=== PATIENT | female | born 1965 | race African-American/Black ===

== ENCOUNTER 2016-08-28 12:06 | Emergency (ER) | payer BC ==
[2016-01-07 13:04] VITALS: BMI 41.7
[~2016-08-28 12:06] MED LIST: CARDIZEM60 MG PO; CATAPRES0.1 MG PO; DAPSONE25 MG PO; DESONIDE15 GM TOPICAL; FOLIC ACID1 MG PO; HYDRALAZINE HCL10 MG PO; HYDRALAZINE HCL25 MG PO; LISINOPRIL10 MG PO; LISINOPRIL2.5 MG PO; OXYCODONE HCL5 MG PO; PLAQUENIL200 MG PO; PRILOSEC20 MG PO; PROTOPIC 0.1% O60 GM TOPICAL; TENEX1 MG PO; TENORMIN25 MG PO; TREXALL10 MG PO; ZESTRIL40 MG PO
[2016-08-28 12:58] LABS: ALBUMIN 3.4 g/dL (3.4-5.0); ALKALINE PHOSPHATASE 88 U/L (46-116); ALT (SGPT) 17 U/L (10-68); BILIRUBIN - TOTAL 0.29 mg/dL (0.2-1.3); CALC OSMOLALITY 281 mosm/kg (275-300); CALCIUM 9.7 mg/dL (8.5-10.1); CARBON DIOXIDE 32.6 mmol/L (21.0-32.0); CHLORIDE - SERUM 100 mmol/L (98-107); CREATININE - SERUM 1.3 mg/dL (0.6-1.3); GLUCOSE 133 mg/dL (74-106); POTASSIUM - SERUM 3.4 mmol/L (3.5-5.1); PROTEIN - SERUM 7.4 g/dL (6.4-8.2); SODIUM 140 mmol/L (136-145); UREA NITROGEN 15 mg/dL (7-18); eGFR NON AFRICAN AMERICAN 46 mL/min (90-120)
[2016-08-28 13:00] LABS: TROPONIN-I < 0.017 ng/mL (0.000-0.060)
[2016-08-28 13:12] LABS: BASOPHILS 0.2 % (0.0-2.0); EOSINOPHILS 1.4 % (0-7); HEMATOCRIT 41.4 % (36.0-48.0); HEMOGLOBIN 13.4 g/dL (12-16); IMMATURE GRANULOCYTES 0.2 % (0-5); LYMPHOCYTES 15.6 % (15-50); MCH 31.7 pg (26.0-34.0); MCHC 32.4 g/dL (31.0-37.0); MCV 97.9 fL (80.0-100.0); MEAN PLATELET VOLUME 9.3 fL (7.4-10.4); MONOCYTES 8.7 % (2-11); NEUTROPHILS 73.9 % (40-80); PLATELET COUNT 367 10x3/uL (130-400); RBC 4.23 10x6/uL (4.00-5.40); RDW 16.9 % (11.5-14.5); WBC 9.2 10x3/uL (4.8-10.8)
[2016-08-28 13:23] LABS: APPEARANCE CLEAR (CLEAR); BILIRUBIN NEGATIVE (NEGATIVE); COLOR STRAW (YELLOW); GLUCOSE NEGATIVE (NEGATIVE); KETONE SMALL mg/dL (NEGATIVE); LEUKOCYTE ESTERASE NEGATIVE (NEGATIVE); NITRITE NEGATIVE (NEGATIVE); PROTEIN NEGATIVE (NEGATIVE); UROBILINOGEN NORMAL (NORMAL)
== END 2016-08-28 14:59 | disposition home or self-care (01) ==
LOC: D.ER 12:06
PROVIDERS: Emergency Medicine; Physician Assistant
DX: R06.02 Shortness of breath (principal); R07.9 Chest pain, unspecified; I12.9 Hypertensive chronic kidney disease with stage 1 through stage 4 chronic kidney disease, or unspecified chronic kidney disease; N18.9 Chronic kidney disease, unspecified; M33.90 Dermatopolymyositis, unspecified, organ involvement unspecified; M32.9 Systemic lupus erythematosus, unspecified

== ENCOUNTER 2016-12-27 08:55 | Emergency (ER) | payer BC ==
[2016-01-07 13:04] VITALS: BMI 41.7
[2016-12-27 10:31] LABS: BASOPHILS 0.1 % (0-2); EOSINOPHILS 0.8 % (0-7); HEMATOCRIT 38.2 % (36.0-48.0); HEMOGLOBIN 12.6 g/dL (12-16); IMMATURE GRANULOCYTES 0.3 % (0-5); LYMPHOCYTES 14.4 % (15-50); MCH 32.5 pg (26.0-34.0); MCV 98.5 fL (80.0-100.0); MEAN PLATELET VOLUME 8.6 fL (7.4-10.4); MONOCYTES 5.5 % (2-11); NEUTROPHILS 78.9 % (40-80); RBC 3.88 10x6/uL (4.00-5.40); RDW 16.5 % (11.5-14.5); WBC 7.1 10x3/uL (4.8-10.8)
[2016-12-27 10:32] LABS: PLATELET COUNT 441 10x3/uL (130-400)
[2016-12-27 10:43] LABS: ALBUMIN 3.7 g/dL (3.4-5.0); ANION GAP 10.1 mmol/L (8-16); BILIRUBIN - TOTAL 0.93 mg/dL (0.2-1.3); CALCIUM 9.7 mg/dL (8.5-10.1); CARBON DIOXIDE 31.2 mmol/L (21.0-32.0); CREATININE - SERUM 1.4 mg/dL (0.6-1.3); POTASSIUM - SERUM 3.3 mmol/L (3.5-5.1); PROTEIN - SERUM 8.8 g/dL (6.4-8.2)
== END 2016-12-27 13:45 | disposition home or self-care (01) ==
LOC: D.ER 08:55
PROVIDERS: Nurse Practitioner Family
DX: S50.11XA Contusion of right forearm, initial encounter (principal); X58.XXXA Exposure to other specified factors, initial encounter; Y93.89 Activity, other specified; Y92.239 Unspecified place in hospital as the place of occurrence of the external cause; K21.9 Gastro-esophageal reflux disease without esophagitis

== ENCOUNTER 2017-03-31 08:56 | Day surgery (SDC) | payer BC ==
[~2017-03-31] VITALS: Ht 170.2 cm; Wt 123.2 kg
--- NOTE | ~2017-03-31 | OP ---
PATIENT NAME: MARCO MCKEON MEDICAL RECORD: [id number] :61 LOCATION:[facility] ADMISSION DATE: SURGEON: LARON MONTERO DO DATE OF OPERATION: 03/31/2017 INDICATIONS FOR PROCEDURE: Dysphagia, heartburn, epigastric pain, nausea. SCOPE: Olympus video gastroscope. MEDICATIONS: Propofol IV per anesthesia (TIVA). ESTIMATED BLOOD LOSS: Minimal. COMPLICATIONS: None. FINDINGS: Informed consent was given. The patient was made comfortable with the above medication. After reaching an adequate level of sedation by slow IV push, the patient was placed on her left side. The endoscope was then advanced under direct visualization through the mouth to the second portion of the duodenum. In the esophagus, there was evidence of Candidiasis of mild severity. At the GE junction, there was mild evidence of LA class A reflux-induced esophagitis. The endoscope was advanced beyond the GE junction into the stomach and retroflexed to view the cardia which revealed a small sliding hiatal hernia. In the fundus and body of the stomach, there were a few small benign appearing fundic gland type polyps. A single polyp was removed to confirm this. In the antrum and prepyloric region of the stomach, there were some very mild erythema and granularity consistent with possible gastritis. Random biopsies were taken to submit for histology and to rule out H. pylori. The endoscope was advanced beyond the pylorus into the duodenum where the bulb and second portion of the duodenum appeared normal. The scope was then withdrawn back into the mid esophagus where random biopsies were taken to rule out eosinophilic esophagitis. The endoscope was then withdrawn from the patient. The patient tolerated the procedure well and there were no complications. IMPRESSION: 1. Esophageal Candidiasis. 2. Mild LA class A reflux-induced esophagitis. 3. Small sliding hiatal hernia. 4. Benign appearing fundic gland type gastric polyps, biopsies taken. 5. Erythema and granularity of the stomach consistent with possible gastritis, biopsies taken. PLAN AND RECOMMENDATIONS: 1. Discharge home when recovery parameters are met. 2. Follow up biopsy specimen results. 3. Continue current diet. 4. Continue current medications, including omeprazole 20 mg daily and ranitidine 150-300 mg as needed. 5. Script for fluconazole 100 mg daily times 21 days will be given regarding the esophageal Candidiasis. 6. Consider referral for manometry/motility study. 7. Proceed with colonoscopy as scheduled. TRANSINT:[id number] Voice Confirmation ID: [id number] DOCUMENT ID: [id number] OPERATIVE REPORT [id number] MARCO MCKEON NATHAN A DO CC: [id number] DICTATION DATE: 03/31/17 1223 CARROTING MACHINE OPERATOR: 03/31/172020 [facility] 03/31/17 [place] [id number]
[2017-03-31] MEDS ORDERED: CHLOROQUINE PH250 MG PO (09:24)
[2017-03-31] MEDS ORDERED: CELLCEPT500 MG PO (09:26)
[2017-03-31 09:27] VITALS: BP 181/80; Ht 170.2 cm; Wt 123.2 kg
[2017-03-31 10:27] LABS: APTT 23.8 SECONDS (22.8-39.4); INR 0.94 (0.85-1.17); PROTIME 12.4 SECONDS (11.6-15.0)
[2017-03-31 10:28] LABS: BASOPHILS 0.1 % (0-2); CALC OSMOLALITY 283 mosm/kg (275-300); CALCIUM 8.9 mg/dL (8.5-10.1); CARBON DIOXIDE 31.7 mmol/L (21.0-32.0); CHLORIDE - SERUM 105 mmol/L (98-107); CREATININE - SERUM 0.8 mg/dL (0.6-1.3); EOSINOPHILS 0.1 % (0-7); GLUCOSE 92 mg/dL (74-106); HEMATOCRIT 41.4 % (36.0-48.0); HEMOGLOBIN 14.1 g/dL (12-16); IMMATURE GRANULOCYTES 0.3 % (0-5); LYMPHOCYTES 12.8 % (15-50); MCH 31.1 pg (26.0-34.0); MCHC 34.1 g/dL (31.0-37.0); MCV 91.4 fL (80.0-100.0); MEAN PLATELET VOLUME 9.9 fL (7.4-10.4); MONOCYTES 10.5 % (2-11); NEUTROPHILS 76.2 % (40-80); RBC 4.53 10x6/uL (4.00-5.40); SODIUM 142 mmol/L (136-145); UREA NITROGEN 16 mg/dL (7-18); WBC 8.6 10x3/uL (4.8-10.8); eGFR NON AFRICAN AMERICAN 79 mL/min (90-120)
[2017-03-31 10:29] LABS: PLATELET COUNT 307 10x3/uL (130-400)
== END 2017-03-31 13:10 | disposition home or self-care (01) ==
LOC: D.OPS 08:56
PROVIDERS: Internal Medicine Gastroenterology
DX: B37.81 Candidal esophagitis (principal); K21.0 Gastro-esophageal reflux disease with esophagitis; K44.9 Diaphragmatic hernia without obstruction or gangrene; K31.7 Polyp of stomach and duodenum; K29.50 Unspecified chronic gastritis without bleeding; R12 Heartburn; Z01.812 Encounter for preprocedural laboratory examination

== ENCOUNTER 2017-04-06 11:12 | Emergency (ER) | payer BC ==
[2017-03-31 09:27] VITALS: BMI 42.5
[~2017-04-06 11:12] MED LIST changes: +CELLCEPT500 MG PO; +CHLOROQUINE PH250 MG PO
[2017-04-06 12:04] LABS: BASOPHILS 0.1 % (0-2); EOSINOPHILS 0.1 % (0-7); HEMOGLOBIN 15.3 g/dL (12-16); IMMATURE GRANULOCYTES 0.3 % (0-5); LYMPHOCYTES 6.2 % (15-50); MCH 31.6 pg (26.0-34.0); MCHC 34.8 g/dL (31.0-37.0); MCV 90.9 fL (80.0-100.0); MEAN PLATELET VOLUME 9.1 fL (7.4-10.4); MONOCYTES 5.1 % (2-11); NEUTROPHILS 88.2 % (40-80); PLATELET COUNT 243 10x3/uL (130-400); RBC 4.84 10x6/uL (4.00-5.40); RDW 14.9 % (11.5-14.5); WBC 14.4 10x3/uL (4.8-10.8)
[2017-04-06 12:20] LABS: APPEARANCE CLEAR (CLEAR); BACTERIA MODERATE /hpf (NONE SEEN); BILIRUBIN NEGATIVE (NEGATIVE); COLOR YELLOW (YELLOW); EPITHELIAL CELLS 0-5 /hpf (0-5); GLUCOSE NEGATIVE (NEGATIVE); KETONE NEGATIVE (NEGATIVE); LEUKOCYTE ESTERASE TRACE (NEGATIVE); MUCUS <1+ /lpf (NONE SEEN); NITRITE NEGATIVE (NEGATIVE); PROTEIN NEGATIVE (NEGATIVE); RED CELLS - URINE OCC /hpf (0-5); SPECIFIC GRAVITY 1.015 (1.005-1.020); UROBILINOGEN NORMAL (NORMAL); WHITE CELLS - URINE 0-5 /hpf (0-5)
[2017-04-06 12:25] LABS: TROPONIN-I 0.026 ng/mL (0.000-0.060)
== END 2017-04-06 15:19 | disposition home or self-care (01) ==
LOC: D.ER 11:12
PROVIDERS: Physician Assistant
DX: R10.13 Epigastric pain (principal); R10.32 Left lower quadrant pain; I12.9 Hypertensive chronic kidney disease with stage 1 through stage 4 chronic kidney disease, or unspecified chronic kidney disease; N18.9 Chronic kidney disease, unspecified; B36.9 Superficial mycosis, unspecified

== ENCOUNTER → 2017-04-28 07:39 | Outpatient (CLI) | payer BC ==
[2017-03-31 09:27] VITALS: BMI 42.5
== END | disposition home or self-care (01) ==
LOC: D.RAD 07:39
DX: R11.0 Nausea (principal); R10.13 Epigastric pain; R19.7 Diarrhea, unspecified; R13.10 Dysphagia, unspecified

== ENCOUNTER → 2017-04-30 10:54 | Outpatient (CLI) | payer BC ==
[2017-03-31 09:27] VITALS: BMI 42.5
== END | disposition home or self-care (01) ==
LOC: D.NM 10:54
DX: R10.13 Epigastric pain (principal); R19.7 Diarrhea, unspecified; R13.10 Dysphagia, unspecified; R11.0 Nausea

== ENCOUNTER 2017-05-10 06:59 | Day surgery (SDC) | payer BC ==
[2017-03-31 09:27] VITALS: BMI 42.5
[2017-05-10] MEDS ORDERED: ZANTAC300 MG PO (08:03)
[2017-05-10] MEDS ORDERED: K-TAB10 MEQ PO (08:03)
[2017-05-10] MEDS ORDERED: PREDNISONE10 MG PO (08:04)
[2017-05-10] MEDS ORDERED: OMEPRAZOLE40 MG PO (08:05)
[2017-05-10] MEDS ORDERED: PHENERGAN25 M1 PO (08:05)
[2017-05-10] MEDS ORDERED: [UNRECOGNIZED DRUG - SUPPLY] TP (08:07)
[2017-05-10] MEDS ORDERED: METHOTREXA25 MG/1 M5 IM (08:07)
[2017-05-10] MEDS ORDERED: TOPAMAX50 MG PO (08:08)
[2017-05-10 09:29] LABS: HEMATOCRIT 40.2 % (36.0-48.0); HEMOGLOBIN 13.6 g/dL (12-16); MCH 31.3 pg (26.0-34.0); MCHC 33.8 g/dL (31.0-37.0); MCV 92.6 fL (80.0-100.0); MEAN PLATELET VOLUME 8.8 fL (7.4-10.4); RBC 4.34 10x6/uL (4.00-5.40); RDW 14.1 % (11.5-14.5); WBC 7.5 10x3/uL (4.8-10.8)
--- NOTE | 2017-05-10 12:01 | NUR ---
1130- IV D/C'D, PT TOLERATED. CAHTETER INTACT. 1140- DISCHARGE INSTRUCTIONS GIVEN, PT VERBALIZED UNDERSTANDING. PAPERWORK COMPLETED. 1145- PT DISCHARGED VIA WHEELCHAIR WITH MOTHER.
--- NOTE | 2017-05-10 12:43 | OP ---
PATIENT NAME: MARCO MCKEON MEDICAL RECORD: [id number] :61 LOCATION:[facility] ADMISSION DATE: SURGEON: LARON MONTERO DO DATE OF OPERATION: 05/10/2017 PROCEDURE: Colonoscopy with polypectomy and biopsy. INDICATIONS FOR PROCEDURE: Lower abdominal pain, altered bowel function, hematochezia. SCOPE: CertiRx video pediatric colonoscope. MEDICATIONS: Propofol 350 mg IV and Zofran 4 mg IV per anesthesia. WITHDRAWAL TIME: 11 minutes. ESTIMATED BLOOD LOSS: Minimal. COMPLICATIONS: None. FINDINGS: Informed consent was given. The patient was made comfortable with the above medication. After reaching an adequate level of sedation by slow IV push, the patient was placed on her left side. A digital rectal examination was performed and was normal. The endoscope was then advanced under direct visualization through the rectum to the cecum with visualization of the appendiceal orifice and ileocecal valve. The scope was slowly withdrawn and mucosa was carefully examined. The prep quality was good. There was evidence of mild pandiverticulosis on this examination. There was no evidence of bleeding or diverticulitis. There was a single polyp visualized in the transverse colon, which was benign appearing and sessile. It measured approximately 5 mm in diameter and was removed in 1 piece using hot forceps. Random biopsies were taken throughout the colon to submit for histopathology and to rule out microscopic colitis. In the sigmoid colon, there were some peridiverticular changes consistent with erythema and granularity. A few biopsies were taken to submit for histology and to rule out colitis. Retroflexion was performed in the rectum with visualization of nonbleeding small hemorrhoids. Scope was then withdrawn from the patient. The patient tolerated the procedure well and there were no complications. IMPRESSION: 1. Single polyp removed from the transverse colon as described above. 2. Mild pandiverticulosis. 3. Peridiverticular changes in the sigmoid colon, possible colitis. Biopsies are pending. PLAN AND RECOMMENDATIONS: 1. Discharge home when recovery parameters are met. 2. Follow up biopsy specimen results. 3. High fiber diet. 4. Continue current medications. 5. Schedule a modified barium swallow for continued dysphagia as discussed prior to procedure. 6. Could consider a trial of dicyclomine 10-20 mg b.i.d. to t.i.d. for lower abdominal pain and changes in bowels, but this would likely make nausea and upper digestive symptoms worse and could have possible side effects with her OPERATIVE REPORT [id number] MARCO MCKEON other comorbidities. 7. Recall colonoscopy in 5 years. TRANSINT:[id number] Voice Confirmation ID: [id number] DOCUMENT ID: [id number] LARON MONTERO DO at 1243 CC: [id number] DICTATION DATE: 05/10/17 1052 MANAGER TECHNICAL SALES: 05/10/17 1224 [facility] 05/10/[address] [address]
== END 2017-05-10 11:45 | disposition home or self-care (01) ==
LOC: D.OPS 06:59
PROVIDERS: Anesthesiology
DX: R10.30 Lower abdominal pain, unspecified (principal); R19.4 Change in bowel habit; K92.1 Melena; K21.9 Gastro-esophageal reflux disease without esophagitis; G47.30 Sleep apnea, unspecified; I12.9 Hypertensive chronic kidney disease with stage 1 through stage 4 chronic kidney disease, or unspecified chronic kidney disease; N18.9 Chronic kidney disease, unspecified; Z01.812 Encounter for preprocedural laboratory examination; D12.3 Benign neoplasm of transverse colon

== ENCOUNTER → 2017-05-17 12:28 | Outpatient (CLI) | payer BC ==
[2017-03-31 09:27] VITALS: BMI 42.5
[~2017-05-17 12:28] MED LIST changes: +K-TAB10 MEQ PO; +METHOTREXA25 MG/1 M5 IM; +OMEPRAZOLE40 MG PO; +PHENERGAN25 M1 PO; +PREDNISONE10 MG PO; +TOPAMAX50 MG PO; +ZANTAC300 MG PO; +[UNRECOGNIZED DRUG - SUPPLY] TP
== END | disposition home or self-care (01) ==
LOC: D.RAD 12:28
DX: R13.12 Dysphagia, oropharyngeal phase (principal)

== ENCOUNTER 2017-06-15 09:30 | Emergency (ER) | payer BC ==
[2017-03-31 09:27] VITALS: BMI 42.5
[2017-06-15 11:16] LABS: BASOPHILS 0.1 % (0-2); HEMATOCRIT 42.7 % (36.0-48.0); HEMOGLOBIN 14.5 g/dL (12-16); IMMATURE GRANULOCYTES 0.5 % (0-5); LYMPHOCYTES 12.2 % (15-50); MCH 31.8 pg (26.0-34.0); MCV 93.6 fL (80.0-100.0); MEAN PLATELET VOLUME 9.1 fL (7.4-10.4); MONOCYTES 10.4 % (2-11); NEUTROPHILS 75.8 % (40-80); PLATELET COUNT 300 10x3/uL (130-400); RBC 4.56 10x6/uL (4.00-5.40); RDW 13.7 % (11.5-14.5)
[2017-06-15 11:30] LABS: ALBUMIN 3.5 g/dL (3.4-5.0); ANION GAP 13.1 mmol/L (8-16); BILIRUBIN - TOTAL 0.49 mg/dL (0.2-1.3); CALCIUM 9.5 mg/dL (8.5-10.1); CREATININE - SERUM 1.1 mg/dL (0.6-1.3); POTASSIUM - SERUM 4.1 mmol/L (3.5-5.1); PROTEIN - SERUM 7.7 g/dL (6.4-8.2)
== END 2017-06-15 13:00 | disposition home or self-care (01) ==
LOC: D.ER 09:30
PROVIDERS: Nurse Practitioner Family
DX: J02.0 Streptococcal pharyngitis (principal); I12.9 Hypertensive chronic kidney disease with stage 1 through stage 4 chronic kidney disease, or unspecified chronic kidney disease; N18.9 Chronic kidney disease, unspecified

== ENCOUNTER 2018-01-29 07:21 | Inpatient (IN) | payer MEDICARE, BC ==
[~2018-01-29] VITALS: Ht 170.2 cm; Wt 116.8 kg
[2018-01-29] VITALS (34 sets, daily range): BP systolic 109–206; BP diastolic 56–125; BMI 40.2
[2018-01-29] MEDS ORDERED: COREG 3.1253.125 MG PO (07:42)
[2018-01-29] MEDS ORDERED: CATAPRES0.1 MG PO (07:42)
[2018-01-29 08:13] LABS: BASOPHILS 0.3 % (0-2); EOSINOPHILS 1.4 % (0-7); HEMATOCRIT 38.3 % (36.0-48.0); HEMOGLOBIN 13.2 g/dL (12-16); IMMATURE GRANULOCYTES 0.1 % (0-5); LYMPHOCYTES 19.5 % (15-50); MCH 31.4 pg (26.0-34.0); MCHC 34.5 g/dL (31.0-37.0); MEAN PLATELET VOLUME 9.2 fL (7.4-10.4); MONOCYTES 8.3 % (2-11); NEUTROPHILS 70.4 % (40-80); PLATELET COUNT 346 10x3/uL (130-400); RBC 4.21 10x6/uL (4.00-5.40); RDW 13.9 % (11.5-14.5)
[2018-01-29 08:23] LABS: APTT 24.6 SECONDS (22.8-39.4); INR 0.94 (0.85-1.17); PROTIME 12.2 SECONDS (11.6-15.0)
[2018-01-29 08:24] LABS: D-DIMER-QUANTITATIVE 3.91 ug/mLFEU (0.20-0.54)
[2018-01-29 09:25] LABS: ALBUMIN 3.1 g/dL (3.4-5.0); ALKALINE PHOSPHATASE 54 U/L (46-116); ALT (SGPT) 19 U/L (10-68); BILIRUBIN - TOTAL 0.56 mg/dL (0.2-1.3); CALC OSMOLALITY 279 mosm/kg (275-300); CALCIUM 8.8 mg/dL (8.5-10.1); CARBON DIOXIDE 27.4 mmol/L (21.0-32.0); CHLORIDE - SERUM 103 mmol/L (98-107); CREATININE - SERUM 1.1 mg/dL (0.6-1.3); GLUCOSE 96 mg/dL (74-106); POTASSIUM - SERUM 3.6 mmol/L (3.5-5.1); PROTEIN - SERUM 6.9 g/dL (6.4-8.2); SODIUM 141 mmol/L (136-145); UREA NITROGEN 9 mg/dL (7-18); eGFR NON AFRICAN AMERICAN 55 mL/min (90-120)
[2018-01-29 09:36] LABS: CKMB 0.6 U/L (0.0-3.6); CREATINE KINASE 70 UL (21-215); MAGNESIUM - SERUM 1.9 mg/dL (1.8-2.4); PRO BNP 217 pg/mL (0-125)
[2018-01-29 09:38] LABS: TROPONIN-I < 0.017 ng/mL (0.000-0.060)
[2018-01-29 12:06] LABS: UDS - AMPHET NEGATIVE QUAL (NEGATIVE); UDS - BARB NEGATIVE QUAL (NEGATIVE); UDS - BENZO NEGATIVE QUAL (NEGATIVE); UDS - COCAINE NEGATIVE QUAL (NEGATIVE); UDS - OPIATE NEGATIVE QUAL (NEGATIVE); UDS - PCP NEGATIVE QUAL (NEGATIVE); UDS - THC NEGATIVE QUAL (NEGATIVE)
[2018-01-29 13:01] LABS: CKMB 0.5 U/L (0.0-3.6); CREATINE KINASE 69 UL (21-215); TROPONIN-I < 0.017 ng/mL (0.000-0.060)
[2018-01-29 19:02] LABS: CKMB 0.7 U/L (0.0-3.6); CREATINE KINASE 66 UL (21-215)
[2018-01-29 19:04] LABS: TROPONIN-I 0.061 ng/mL (0.000-0.060)
[2018-01-30] VITALS (10 sets, daily range): BP systolic 152–191; BP diastolic 71–93; Ht 170.2 cm; Wt 116.8 kg
[2018-01-30 00:58] LABS: CKMB 0.5 U/L (0.0-3.6); CREATINE KINASE 67 UL (21-215); TROPONIN-I 0.046 ng/mL (0.000-0.060)
[2018-01-30 04:06] LABS: BASOPHILS 0.3 % (0-2); EOSINOPHILS 1.8 % (0-7); HEMOGLOBIN 13.3 g/dL (12-16); IMMATURE GRANULOCYTES 0.3 % (0-5); LYMPHOCYTES 16.9 % (15-50); MCH 31.2 pg (26.0-34.0); MCHC 34.1 g/dL (31.0-37.0); MCV 91.5 fL (80.0-100.0); MONOCYTES 7.9 % (2-11); NEUTROPHILS 72.8 % (40-80); PLATELET COUNT 333 10x3/uL (130-400); RBC 4.26 10x6/uL (4.00-5.40); RDW 13.9 % (11.5-14.5); WBC 7.9 10x3/uL (4.8-10.8)
[2018-01-30 04:24] LABS: ALBUMIN 3.4 g/dL (3.4-5.0); ANION GAP 8.1 mmol/L (8-16); BILIRUBIN - TOTAL 0.6 mg/dL (0.2-1.3); CALCIUM 9.2 mg/dL (8.5-10.1); CARBON DIOXIDE 28.4 mmol/L (21.0-32.0); CREATININE - SERUM 1.1 mg/dL (0.6-1.3); POTASSIUM - SERUM 3.5 mmol/L (3.5-5.1); PROTEIN - SERUM 7.7 g/dL (6.4-8.2)
[2018-01-30] MEDS ORDERED: NORVASC10 MG PO (11:40)
[2018-01-30] MEDS ORDERED: ZESTRIL40 MG PO (11:41)
[2018-01-30] MEDS ORDERED: CHLORTHALIDONE25 MG PO (11:42)
== END 2018-01-30 15:11 | disposition home or self-care (01) | DRG 305 ==
LOC: D.ER 07:21 → D.EDHOLD 11:37 → D.ICU 15:01 → D.M2 01-30 09:32
PROVIDERS: Family Medicine
DX: I16.0 Hypertensive urgency (principal); Z68.41 Body mass index [BMI] 40.0-44.9, adult; B36.9 Superficial mycosis, unspecified; E66.01 Morbid (severe) obesity due to excess calories; K21.9 Gastro-esophageal reflux disease without esophagitis; I11.0 Hypertensive heart disease with heart failure; I50.9 Heart failure, unspecified; Z86.73 Personal history of transient ischemic attack (TIA), and cerebral infarction without residual deficits

== ENCOUNTER 2018-02-05 08:46 | Outpatient (CLI) | payer MEDICARE, BC ==
[~2018-02-05] VITALS: Ht 170.2 cm; Wt 113.6 kg
--- NOTE | ~2018-02-05 | HEMODYNAMI ---
PATIENT:MARCO MCKEON MEDICAL RECORD: [id number] : 61 LOCATION:[facility] ADMISSION DATE: 02/05/18 Generatedon:02/05/201813:55 Patient name: MARCO MCKEON Patient #: [id number] SSN: : 1965 Date of study: 02/05/2018 Page: Of Hemodynamic Procedure Report Patient Data Patient Demographics Procedure consent was obtained First Name: MARCO Gender: Female Last Name: MIKE : 1965 Middle Initial: M Age: 52 year(s) Patient #: [id number] Race: Black Additional ID: [id number] Contact details [address]: [address] [place] [address] State: [place] City: [place] Zip code: [address] Past Medical History Allergies Allergen Reaction Date Comments Reported Other allergy 02/05/2018 iodine Admission Admission Data Admission Date: 02/05/2018 Admission Time: 8:46 Height (in.): 66.93 BSA: 2.23 (m2) Height (cm.): 170 BMI: 39.79 (kg/m2) Weight (lbs.): 253.53 Weight (kg.): 115 Lab Results Lab Result Date: 02/05/2018 Lab Result Time: 0:00 Biochemistry Name Units Result Min Max BUN mg/dl 15 --(--*-)-- 7 18 Creatinine mg/dl 1.2 --(---*)-- 0.6 1.3 CBC Name Units Result Min Max Hemoglobin g/dl 13.6 --(*---)-- 13.5 17.5 Procedure Procedure Types Cath Procedure Diagnostic Procedure LHC LHC w/Coronaries Procedure Description Procedure Date Procedure Date: 02/05/2018 Procedure Start Time: 13:39 Procedure End Time: 13:51 Procedure Staff Name Function Vinny Bolanos MD Performing Physician Carisa Shane RT Monitor Curtis Robles RN Nurse Thai García RT Scrub Procedure Data Cath Procedure Fluoroscopy Diagnostic fluoroscopy Total fluoroscopy Time: 1.1 time: 1.1 min min Diagnostic fluoroscopy Total fluoroscopy dose: 388 dose: 388 mGy mGy Contrast Material Contrast Material Type Amount (ml) Isovue 300 44 Entry Location Entry Primary Successful Side Size Upsize Upsize Entry Closure Succes sful Closure Location (Fr) 1 (Fr) 2 (Fr) Remarks Device Remarks Femoral Right 5 Fr Exoseal artery Estimated blood loss: 10 ml Diagnostic catheters Device Type Used For End Catheter Placement MULTIPACK JL 4.0 5Fr Procedure catheter MULTIPACK 3DRC 5Fr Procedure catheter MULTIPACK Pigtail 5 Fr Procedure catheter Procedure Complications No complications Procedure Medications Medication Administration Route Dosage Oxygen NC 2 l/min Lidocaine 1% added to field 20 Heparin Flush Bag added to field 2 bags (1000units/500ml NS) 0.9% NaCl I.V. 100 ml/hr Versed I.V. 1 mg Fentanyl I.V. 50 mcg Versed I.V. 1 mg Fentanyl I.V. 50 mcg Hemodynamics Rest BSA: 2.23 (m2) O2 Consumption: Estimated: 223.98 (ml/min) O2 Consumption indexed : Estimated:100.44 (ml/min/m) Heart Rate: 80 (bpm) Pressure Samples Time Site Value (mmHg) Purpose Heart Use Rate(bpm) 13:48 AO 147/5(48) EDP 80 13:48 AO 148/7(48) Snapshot 82 Snapshots Pre Cath Intra NCS Post Cath Vital Signs Time Heart Resp SPO2 etCO2 NIBP (mmHg) Rhythm Pain Sedation Rate (ipm) (%) (mmHg) Status Level (bpm) 13:29:41 67 29 100 24.7 139/79(106) NSR 0 (11) 10(A) , No pain 13:34:17 68 14 100 23.9 134/74(102) NSR 0 (11) 10(A) , No pain 13:38:52 68 16 100 25.4 125/72(92) NSR 0 (11) 10(A) , No pain 13:43:26 71 19 100 23.2 125/63(92) NSR 0 (11) 10(A) , No pain 13:48:09 76 18 100 24.7 132/73(89) NSR 0 (11) 10(A) , No pain Medications Time Medication Route Dose Verified Delivered Reason Notes Effe ctiveness by by 13:28:49 Oxygen NC 2 Vinny Buffie used for l/min Norred Robles flying squad salesperson 13:30:04 Lidocaine 1% added 20ml Vinny Buffie for local to vial Luis Miguel Robles RN anesthetic field 13:30:10 Heparin Flush added 2 Vinny Buffie used for Bag to bags Luis Miguel Robles RN procedure (1000units/500ml field NS) 13:30:20 0.9% NaCl I.V. 100 Vinny Buffie Per ml/hr Luis Miguel Robles RN physician 13:33:23 Versed I.V. 1 mg Vinny Buffie for Luis Miguel Robles RN sedation 13:33:28 Fentanyl I.V. 50 Vinny Buffie for mcg Luis Miguel Robles RN sedation 13:40:37 Versed I.V. 1 mg Vinny Buffie for Luis Migeul Robles RN sedation 13:40:41 Fentanyl I.V. 50 Vinny Buffie for mcg Luis Miguel Robles RN sedation MD Procedure Log Time Note 12:58:50 Patient Height : 66.93 inches 12:58:57 Patient Weight : 253.53 lbs 12:59:37 Lab Result : Hemoglobin 13.6 g/dl 12:59:37 Lab Result : Creatinine 1.2 mg/dl 12:59:37 Lab Result : BUN 15 mg/dl 13:00:02 Diagnostic Cath status Elective 13:00:04 Thai JIMENEZ(R) sent for patient. Start room use. 13:00:07 Time tracking: Call back (After hours or weekends) 13:00:12 Plan of Care:Hemodynamics will remain stable., Cardiac rhythm will remain stable., Comfort level will be maintained., Respiratory function will remain adequate., Patient/ family verbilizes understanding of procedure., Procedure tolerated without complication., Recovers from procedure without complications.. 13:00:53 Patient received from ED to CCL 1 Alert and oriented. Tansferred to table in Supine position. 13:00:55 Warm blankets applied, and shama hugger turned on for patient comfort. 13:00:55 Warm blankets applied, and shama hugger turned on for patient comfort. 13:00:56 Correct patient and procedure confirmed by team. 13:00:59 Signed procedure consent form obtained from patient. 13:01:09 H&P Date Dictated: 02/05/2018 Emergent; H&P N/A. 13:01:13 Family in waiting room. 13:01:15 Patient NPO since Midnight. 13:01:35 Patient allergic to Other allergyiodine 13:01:39 Is the patient allergic to Iodine/contrast media? Yes. 13:01:41 Was the patient premedicated? Yes 13:28:49 Oxygen 2 l/min NC was administered by Curtis Robles RN; used for procedure; 13:28:50 Vital chart was started 13:30:04 Lidocaine 1% 20ml vial added to field was administered by Curtis Robles RN; for local anesthetic; 13:30:10 Heparin Flush Bag (1000units/500ml NS) 2 bags added to field was administered by Curtis Robles RN; used for procedure; 13:30:20 0.9% NaCl 100 ml/hr I.V. was administered by Curtis Robles RN; Per physician; 13:30:22 Is patient on blood thinner?Yes 13:30:25 ACC The patient was administered the following blood thiners within the last 24 hours: ACCPlavix 13:30:28 Patient diabetic? No. 13:30:31 Snore? Yes 13:30:33 Sleep apnea? Yes 13:30:38 Airway obstruction? Yes COPD 13:30:50 IV patent on arrival in right forearm with 0.9% NaCl at KVO. 13:31:01 IV left hand D/C'd due to infiltration. 13:31:17 IV started by Curtis Robles RN inright forearm with a 22 gauge IV catheter with 0.9% NaCl at KVO. 13:31:20 Lab results completed and on chart. 13:31:29 Right groin area was prepped with chlora-prep and draped in sterile fashion 13:31:30 Alarms reviewed by R. N. 13:31:31 Sharps counted by scrub and verified by R.N. 13:31:32 Physician paged 13:31:33 Physician arrived 13:31:34 --------ALL STOP TIME OUT------ 13:31:34 Final Timeout: patient, procedure, and site verified with staff and physician. All members of the team are in agreement. 13:31:38 Right groin site verified by team. 13:31:46 Physical assessment completed. ASA score P 3 - A patient with severe systemic disease as per Vinny Norred MD. 13:31:53 Sedation plan: IV Moderate Sedation Medication:Versed, Fentanyl 13:32:17 Use device set Femoral Dx 13:32:19 ACIST Syringe (85235) opened to sterile field. 13:32:20 Bag Decanter (2002S) opened to sterile field. 13:32:20 Medline Cath Pack ([id number]) opened to sterile field. 13:32:21 DIAGNOSTIC WIRE .035 260cm J wire (527329) opened to sterile field. 13:32:22 ACIST Hand Control (13159) opened to sterile field. 13:32:22 ACIST Manifold (29194) opened to sterile field. 13:32:23 DIAGNOSTIC Multipack 5Fr catheter set ([id number]) opened to sterile field. 13:32:23 Tegaderm 4 x 4 (1626W) opened to sterile field. 13:32:24 PERCUTANEOUS ENTRY 19GA needle opened to sterile field. 13:32:25 MICROPUNCTURE 4FR Cook ([id number]) opened to sterile field. 13:32:27 SHEATH Prelude 5Fr 0.035 ([id number]-3N-76-035) opened to sterile field. 13:33:23 Versed 1 mg I.V. was administered by Curtis Robles RN; for sedation; 13:33:28 Fentanyl 50 mcg I.V. was administered by Curtis Robles RN; for sedation; 13:38:43 Procedure started. 13:38:43 Full Disclosure recording started 13:39:08 Local anesthetic to right femoral artery with Lidocaine 2% by Vinny Bolanos MD.INITIAL ACCESS ONLY 13:39:42 A 5 Fr sheath was inserted into the Right Femoral artery 13:39:46 Zero performed for pressure channel P1 13:39:54 Zero performed for pressure channel P1 13:40:37 Versed 1 mg I.V. was administered by Curtis Robles RN; for sedation; 13:40:41 Fentanyl 50 mcg I.V. was administered by Curtis Robles RN; for sedation; 13:42:20 A MULTIPACK JL 4.0 5Fr catheter was advanced over the wire and used for Procedure. 13:42:22 LCA angiography performed. 13:43:55 Catheter removed. 13:44:07 A MULTIPACK 3DRC 5Fr catheter was advanced over the wire and used for Procedure. 13:44:47 RCA angiography performed. 13:46:30 Catheter removed. 13:46:37 A MULTIPACK Pigtail 5 Fr catheter was advanced over the wire and used for Procedure. 13:46:38 EXOSEAL 5Fr (EX500) opened to sterile field. 13:46:49 LV gram done using SMITH 13:49:08 EF : 65 % 13:49:12 LV hemodynamics recorded. 13:49:13 Catheter removed. 13:49:24 Sheath removed intact; hemostasis achieved with Exoseal to the Right Femoral artery. 13:49:48 Procedure ended.(Physican Out) 13:50:01 Fluoroscopy time 01.10 minutes. 13:50:05 Fluoroscopy dose: 388 mGy 13:50:05 Flurop Dose total: 388 13:50:09 Contrast amount:Isovue 300 44ml. 13:50:12 Sharps counted by scrub and verified by R.N. 13:50:27 Insertion/operative site no bleeding no hematoma. 13:50:32 Post right femoral artery:stable 13:50:35 Post Procedure Pulses reassessed and unchanged 13:50:39 Post procedure rhythm: unchanged. 13:50:42 Estimated blood loss: 10 ml 13:50:43 Post procedure instruction explained to patient.Patient verbalizes understanding. 13:50:44 Patient needs reinforcement of post procedure teaching. 13:50:58 Procedure and supply charges have been captured, reviewed, submitted and are correct. 13:51:18 Procedure Complication : No complications 13:51:21 Vital chart was stopped 13:51:23 See physician's report for complete and final results. 13:51:30 Report given to Pre/Post Procedure Room. 13:51:35 Patient transfered to [facility] with Bed. 13:51:38 Procedure ended. 13:51:38 Full Disclosure recording stopped 13:51:40 End room use (Document Last) Device Usage Item Name Manufacture Quantity Catalog Number Hospital Part Current M inimal Lot# / Charge Number Stock Stock Serial# Code ACIST Syringe Acist 1 06734 191976 [id number] 099864 2 0 (96487) [employer] Bag Decanter Microtek 1 000845 98529 195550 5 () Medical Inc. Medline Cath Cardinal 1 [id number] 254722 27503 402638 5 Mobile Tracing Services [facility] ([id number]) DIAGNOSTIC WIRE [place] 1 348055 914604 397788 481436 3 0 .035 260cm J wire (175762) ACIST Hand Acist 1 89852 711639 960257 097526 5 Control (19267) [employer] Inc ACIST Manifold Acist 1 16980 500433 624056 348092 5 (47817) [employer] Inc DIAGNOSTIC Cardinal 1 [id number] 656331 94402 163583 3 0 Multipack 5Fr Health catheter set ([id number]) Tegaderm 4 x 4 3M 1 1626W 572134 300968 603429 5 (1626W) PERCUTANEOUS Cook Medical 1 W52648 783532 745006 5 ENTRY 19GA needle MICROPUNCTURE Cook Medical 1 [id number] 206785 380342 857575 5 4FR Cook ([id number]) SHEATH Prelude Merit 1 [id number] 645966 576007 580571 5 5Fr 0.035 Medical ([id number]-3Q-[id number]) MULTIPACK JL Cardinal 1 [id number] 5 4.0 5Fr Health catheter MULTIPACK 3DRC Cardinal 1 580955 5 5Fr catheter Health MULTIPACK Cardinal 1 [id number] 5 Pigtail 5 Fr Health catheter EXOSEAL 5Fr Cardinal 1 EX500 283061 208446 167652 1 0 (EX500) Health Signature Audit [place] Stage Time Signature Unsigned Intra-Procedure 02/05/2018 Carisa Shane 1:55:19 PM RT(R) Signatures Monitor : Carisa Shane Signature : RT Date : Time : [place] [address] [place] [address]
[~2018-02-05 08:46] MED LIST changes: +CHLORTHALIDONE25 MG PO; +COREG 3.1253.125 MG PO; +NORVASC10 MG PO
[2018-02-05 09:17] LABS: BASOPHILS 0.1 % (0-2); EOSINOPHILS 1.1 % (0-7); HEMOGLOBIN 13.6 g/dL (12-16); IMMATURE GRANULOCYTES 0.3 % (0-5); MCH 31.5 pg (26.0-34.0); MCHC 34.9 g/dL (31.0-37.0); MCV 90.3 fL (80.0-100.0); MEAN PLATELET VOLUME 8.6 fL (7.4-10.4); MONOCYTES 5.9 % (2-11); NEUTROPHILS 75.6 % (40-80); PLATELET COUNT 346 10x3/uL (130-400); RBC 4.32 10x6/uL (4.00-5.40); RDW 13.3 % (11.5-14.5)
[2018-02-05] MEDS ORDERED: CARDURA4 MG PO (09:27)
[2018-02-05 09:31] LABS: ALBUMIN 3.6 g/dL (3.4-5.0); ALKALINE PHOSPHATASE 60 U/L (46-116); ALT (SGPT) 17 U/L (10-68); CALC OSMOLALITY 283 mosm/kg (275-300); CALCIUM 9.3 mg/dL (8.5-10.1); CARBON DIOXIDE 29.7 mmol/L (21.0-32.0); CHLORIDE - SERUM 103 mmol/L (98-107); CREATININE - SERUM 1.2 mg/dL (0.6-1.3); GLUCOSE 126 mg/dL (74-106); POTASSIUM - SERUM 3.3 mmol/L (3.5-5.1); PROTEIN - SERUM 8.1 g/dL (6.4-8.2); SODIUM 141 mmol/L (136-145); UREA NITROGEN 15 mg/dL (7-18); eGFR NON AFRICAN AMERICAN 50 mL/min (90-120)
[2018-02-05 09:33] LABS: CREATINE KINASE 78 UL (21-215); TROPONIN-I < 0.017 ng/mL (0.000-0.060)
[2018-02-05 14:25] VITALS: BP 124/70; Ht 170.2 cm; Wt 113.6 kg
== END 2018-02-05 18:18 | disposition home or self-care (01) ==
LOC: D.ER 08:46 → D.CATH 08:46 → EDSTATUS 11:03 → D.M2 14:00 → D.CATH 18:18
PROVIDERS: Emergency Medicine
DX: I25.10 Atherosclerotic heart disease of native coronary artery without angina pectoris (principal); I10 Essential (primary) hypertension; Z01.812 Encounter for preprocedural laboratory examination

== ENCOUNTER → 2018-03-21 11:06 | Outpatient (CLI) | payer MEDICARE, BC ==
[2018-02-05 14:25] VITALS: BMI 39.2
[~2018-03-21 11:06] MED LIST changes: +CARDURA4 MG PO
== END | disposition home or self-care (01) ==
LOC: D.CT 11:06
DX: R13.10 Dysphagia, unspecified (principal)

== ENCOUNTER → 2018-04-04 11:08 | Outpatient (CLI) | payer MEDICARE, BC ==
[2018-02-05 14:25] VITALS: BMI 39.2
== END | disposition home or self-care (01) ==
LOC: D.CT 04-01 14:30
DX: R13.10 Dysphagia, unspecified (principal)

== ENCOUNTER 2019-03-23 12:30 | Emergency (ER) | payer MEDICARE, BC ==
[~2019-03-23] VITALS: Ht 170.2 cm; Wt 127.0 kg
[2019-03-23 12:36] VITALS: Ht 170.2 cm; Wt 127.0 kg
[2019-03-23] MEDS ORDERED: NORVASC10 MG PO (12:44)
[2019-03-23] MEDS ORDERED: CATAPRES0.2 MG PO (12:44)
[2019-03-23] MEDS ORDERED: BACLOFEN20 M1 PO (13:55)
[2019-03-23] MEDS ORDERED: VOLTAREN75 MG PO (13:55)
[2019-03-23 14:08] VITALS: BP 149/72
== END 2019-03-23 14:09 | disposition home or self-care (01) ==
LOC: D.ER 12:30
DX: S43.402A Unspecified sprain of left shoulder joint, initial encounter (principal); X58.XXXA Exposure to other specified factors, initial encounter; Y93.89 Activity, other specified; Y92.89 Other specified places as the place of occurrence of the external cause

== ENCOUNTER → 2019-04-20 08:28 | Outpatient (CLI) | payer MEDICARE, BC ==
[2019-03-23 12:36] VITALS: BMI 39.2
[~2019-04-20 08:28] MED LIST changes: +BACLOFEN20 M1 PO; +CATAPRES0.2 MG PO; +VOLTAREN75 MG PO
== END | disposition home or self-care (01) ==
LOC: D.MRI 08:28
PROVIDERS: ATTEND Orthopaedic Surgery
DX: M76.61 Achilles tendinitis, right leg (principal)

== ENCOUNTER → 2019-04-27 07:28 | Outpatient (CLI) | payer MEDICARE, BC ==
[2019-03-23 12:36] VITALS: BMI 39.2
== END | disposition home or self-care (01) ==
LOC: D.US 07:28
PROVIDERS: ATTEND Nurse Practitioner Family
DX: I12.9 Hypertensive chronic kidney disease with stage 1 through stage 4 chronic kidney disease, or unspecified chronic kidney disease (principal); N18.3 Chronic kidney disease, stage 3 (moderate); E55.9 Vitamin D deficiency, unspecified; Z68.41 Body mass index [BMI] 40.0-44.9, adult; M33.10 Other dermatomyositis, organ involvement unspecified

== ENCOUNTER → 2019-06-08 07:56 | Outpatient (CLI) | payer MEDICARE, BC ==
[2019-03-23 12:36] VITALS: BMI 39.2
[~2019-06-08 07:56] MED LIST changes: +ASPIRIN EC81 M1 PO; +DILAUDID4 MG PO; +FUROSEMIDE20 MG PO; +KLONOPIN0.5 MG PO; +KLOR-CON 1010 MEQ PO; +LASIX40 MG PO; +METOPROLOL TART25 MG PO; +PERCOCET 10-321 EAC1 PO; +VITAMIN D250000 UNIT PO; +ZANAFLEX4 MG PO
== END | disposition home or self-care (01) ==
LOC: D.MRI 07:56
PROVIDERS: ATTEND Nurse Practitioner Family
DX: M75.41 Impingement syndrome of right shoulder (principal)

== ENCOUNTER 2019-07-07 19:25 | Emergency (ER) | payer MEDICARE, BC ==
[~2019-07-07] VITALS: Ht 170.2 cm; Wt 127.3 kg
[~2019-07-07 19:25] MED LIST changes: -ASPIRIN EC81 M1 PO; -DILAUDID4 MG PO; -FUROSEMIDE20 MG PO; -KLONOPIN0.5 MG PO; -KLOR-CON 1010 MEQ PO; -LASIX40 MG PO; -METOPROLOL TART25 MG PO; -PERCOCET 10-321 EAC1 PO; -VITAMIN D250000 UNIT PO; -ZANAFLEX4 MG PO
[2019-07-07 19:28] VITALS: Ht 170.2 cm; Wt 127.3 kg
[2019-07-07] MEDS ORDERED: METOPROLOL TART25 MG PO (19:31)
[2019-07-07 20:05] LABS: BASOPHILS 0.1 % (0-2); EOSINOPHILS 0.3 % (0-7); HEMOGLOBIN 13.3 g/dL (12-16); IMMATURE GRANULOCYTES 0.3 % (0-5); LYMPHOCYTES 23.8 % (15-50); MCH 30.9 pg (26.0-34.0); MCHC 34.1 g/dL (31.0-37.0); MCV 90.5 fL (80.0-100.0); MEAN PLATELET VOLUME 8.6 fL (7.4-10.4); MONOCYTES 6.6 % (2-11); NEUTROPHILS 68.9 % (40-80); PLATELET COUNT 322 10x3/uL (130-400); RBC 4.31 10x6/uL (4.00-5.40); RDW 14.5 % (11.5-14.5); WBC 9.1 10x3/uL (4.8-10.8)
[2019-07-07 20:14] LABS: APTT 24.8 SECONDS (22.8-39.4); PROTIME 12.7 SECONDS (11.6-15.0)
[2019-07-07 20:15] LABS: CALC OSMOLALITY 281 mosm/kg (275-300); CARBON DIOXIDE 29.4 mmol/L (21.0-32.0); CHLORIDE - SERUM 105 mmol/L (98-107); CREATININE - SERUM 1.3 mg/dL (0.6-1.3); D-DIMER-QUANTITATIVE 0.58 ug/mLFEU (0.20-0.54); GLUCOSE 94 mg/dL (74-106); POTASSIUM - SERUM 3.8 mmol/L (3.5-5.1); SODIUM 141 mmol/L (136-145); UREA NITROGEN 15 mg/dL (7-18); eGFR NON AFRICAN AMERICAN 45 mL/min (90-120)
[2019-07-07 20:32] LABS: ALBUMIN 3.5 g/dL (3.4-5.0); ALKALINE PHOSPHATASE 103 U/L (46-116); ALT (SGPT) 25 U/L (10-68); CKMB 0.8 U/L (0.0-3.6); CREATINE KINASE 107 UL (21-215); MAGNESIUM - SERUM 1.9 mg/dL (1.8-2.4); PRO BNP 52 pg/mL (0-125); PROTEIN - SERUM 7.6 g/dL (6.4-8.2)
[2019-07-07 20:33] LABS: TROPONIN-I < 0.017 ng/mL (0.000-0.060)
[2019-07-07] MEDS ORDERED: LASIX40 MG PO (22:00)
[2019-07-07] MEDS ORDERED: KLOR-CON 1010 MEQ PO (22:00)
[2019-07-08] VITALS: BP 138/80
[2019-07-11] MEDS ORDERED: FUROSEMIDE20 MG PO (09:44)
[2019-07-11] MEDS ORDERED: KLONOPIN0.5 MG PO (09:46)
[2019-07-11] MEDS ORDERED: PERCOCET 10-321 EAC1 PO (09:47)
[2019-07-11] MEDS ORDERED: ZANAFLEX4 MG PO (09:48)
[2019-07-11] MEDS ORDERED: CHLOROQUINE PH250 MG PO (09:48)
[2019-07-11] MEDS ORDERED: ASPIRIN EC81 M1 PO (09:49)
== END 2019-07-07 23:59 | disposition home or self-care (01) ==
LOC: D.ER 19:25
PROVIDERS: Emergency Medicine
DX: R60.0 Localized edema (principal); M79.606 Pain in leg, unspecified; I25.10 Atherosclerotic heart disease of native coronary artery without angina pectoris; M16.12 Unilateral primary osteoarthritis, left hip; Z86.73 Personal history of transient ischemic attack (TIA), and cerebral infarction without residual deficits; I11.0 Hypertensive heart disease with heart failure; I50.9 Heart failure, unspecified

== ENCOUNTER → 2019-07-12 12:58 | Outpatient (CLI) | payer MEDICARE, BC ==
[2019-07-07 19:28] VITALS: Ht 170.2 cm; Wt 123.8 kg
[~2019-07-12] VITALS: Ht 170.2 cm; Wt 123.8 kg
[~2019-07-12 12:58] MED LIST changes: +ASPIRIN EC81 M1 PO; +DILAUDID4 MG PO; +FUROSEMIDE20 MG PO; +KLONOPIN0.5 MG PO; +KLOR-CON 1010 MEQ PO; +LASIX40 MG PO; +METOPROLOL TART25 MG PO; +PERCOCET 10-321 EAC1 PO; +VITAMIN D250000 UNIT PO; +ZANAFLEX4 MG PO
== END | disposition home or self-care (01) ==
LOC: D.US 12:58
PROVIDERS: ATTEND Internal Medicine Interventional Cardiology
DX: R09.89 Other specified symptoms and signs involving the circulatory and respiratory systems (principal)

== ENCOUNTER 2019-07-14 08:55 | Day surgery (SDC) | payer MEDICARE, BC ==
[2019-07-11 10:47] LABS: ANION GAP 11.6 mmol/L (8-16); CALCIUM 9.4 mg/dL (8.5-10.1); CARBON DIOXIDE 30.1 mmol/L (21.0-32.0); CREATININE - SERUM 1.3 mg/dL (0.6-1.3); HEMATOCRIT 41.7 % (36.0-48.0); HEMOGLOBIN 14.1 g/dL (12-16); MCH 30.8 pg (26.0-34.0); MCHC 33.8 g/dL (31.0-37.0); MEAN PLATELET VOLUME 8.7 fL (7.4-10.4); POTASSIUM - SERUM 3.7 mmol/L (3.5-5.1); RBC 4.58 10x6/uL (4.00-5.40); RDW 14.3 % (11.5-14.5); WBC 8.4 10x3/uL (4.8-10.8)
[~2019-07-14] VITALS: Ht 170.2 cm; Wt 123.8 kg
[~2019-07-14 08:55] MED LIST changes: -DILAUDID4 MG PO; -VITAMIN D250000 UNIT PO
[2019-07-14] MEDS ORDERED: VITAMIN D250000 UNIT PO (09:35)
[2019-07-14 09:38] VITALS: BMI 42.8
[2019-07-14] MEDS ORDERED: DILAUDID4 MG PO (14:10)
[2019-07-14 15:54] VITALS: Ht 170.2 cm; Wt 123.8 kg
--- NOTE | 2019-07-14 16:20 | NUR ---
[address] YUNG CAME TO PT BEDSIDE TO EVALULATE CP AND BEEBE. 12 LEAD EKG WAS EVALUATED AND DR. TODD WAS NOTIFIED OF EVENTS. NTG 0.4MG SL GIVEN ORDERED PER DR YUNG. PT IMMEDIATELY GOT CP RELIEF FROM NTG. DR TRIANA'S NURSE PRACTIONER CAME TO EVALUATE PT AND REASSURE PT THAT SHE HAD A NORMAL CARDIAC CATH A YEAR AGO. THAT CP COULD BE B/P RELATED. PT HAD ONE DOSE OF HYDRALAZINE(APRESOLINE) PRIOR TO RFID ENGINEER VISIT. AT [address] YUNG WAS AT BEDSIDE TO EVALUATE PT'S B/P 178/94 AND A SECOND ORDER FOR HYDRALAZINE 10MG WAS RECEIVED TO GIVE TO PT. DR YUNG RETURNED TO BEDSIDE AT 1627 TO CHECK ON PT. B/P IS 156/89. PT STATES CP IS COMPLETELY GONE. DENIES SOB. PT DENIES BEEBE AT PRESENT. PT STATES THAT LEFT SHOULDER IS STARTING TO BURN.
--- NOTE | 2019-07-14 17:04 | NUR ---
1700 PT STILL HAS BURNING SENSATION IN LEFT SHOULDER. NO RELIEF FROM DILAUDID YET. DENIES CP. DENIES BEEBE. PT ASKING WHEN SHE CAN GO HOME 1704 REPORT GIVEN TO ELIU OSUNA RN WHO WILL CONTINUE PT'S CARE UNTIL DISCHARGE HOME.
--- NOTE | 2019-07-14 17:30 | NUR ---
PT DC INSTRUCTIONS REVIEWED AT THIS TIME, PT VERBALIZES UNDERSTANDING. PT IV REMOVED AT THIS TIME, INTACT, NO REDNESS OR SWELLING LOCATED AT SITE.
--- NOTE | 2019-07-14 17:40 | NUR ---
PT LEAVING OPS AT THIS TIME, NAD NOTED.
--- NOTE | 2019-07-14 18:42 | OP ---
PATIENT NAME: MARCO HDEZ MEDICAL RECORD: [id number] :61 [facility] AD[facility]ION DATE: SURGEON: RUTH CONWAY DO DATE OF OPERATION: 07/14/2019 PROCEDURE PERFORMED: Left shoulder arthroscopy with subacromial decompression, distal clavicle excision, biceps tenotomy, labral debridement. PREOPERATIVE DIAGNOSES: Left shoulder pain, subacromial impingement, AC joint arthritis, SLAP tear. POSTOPERATIVE DIAGNOSES: Left shoulder pain, subacromial impingement, AC joint arthritis, SLAP tear. INDICATIONS: Ms. Hdez is a 53-year-old female who has complained of left shoulder pain for a long time, greater than a year. She has attempted physical therapy and injections to no avail. When she got to a point where that was not working at all, she wants something done surgically. I informed her of the risks of surgery including infection, bleeding, damage to nerves and vessels, need for further surgery, continued pain and she signed the consent. SURGEON: Ruth Conway DO DESCRIPTION OF PROCEDURE: The patient was taken to the operating suite after given a block by anesthesia in the preoperative area, she was laid in the right lateral decubitus position with the left arm up. She was then sedated and LMA was placed. She was prepped and draped in sterile fashion. A time-out was performed, everyone was in agreement with the correct side, site, patient, and procedure. The procedure then began through the posterior portal going into the shoulder joint with an 18-gauge spinal needle and insufflated into the joint with 60 cc of normal saline. This was then removed and then an 11 blade scalpel was used to go through the skin and the trocar was entered in the shoulder joint. The camera was then entered. The shoulder joint was viewed. There was a SLAP tear noted. Anterior portal site was established with 18-guage spinal needle and 11 blade scalpel. The subscapularis tendon was in good repair as well as the supraspinatus and infraspinatus. There were no loose bodies in the inferior joint and the cartilage was in good repair. The burner was then brought in when the SLAP tear was noticed and the bicep tenotomy was performed at that point as well as labral debridement. We then went to the subacromial space and it was quite congested. The bursa was severely inflamed and difficult to get into the subacromial space. Once it was entered, a thorough bursectomy was done with a shaver through the lateral portal had been established with 18-guage spinal needle and 11 blade scalpel and then a burner was brought in for the distal lateral acromioplasty through the anterior portal. The AC joint was opened up and the distal clavicle was excised opening the AC joint to 7 mm. Any bleeding was then coagulated with the burner and the rotator cuff on the bursal side was in good repair. The water was then turned off, suction turned on and instruments were removed from the shoulder. She was then closed with 4-0 Monocryl in inverted interrupted fashion and Dermabond placed on the skin. Telfa and Tegaderm were placed on the skin. She was then awakened and taken to recovery in stable condition. BLOOD LOSS: Minimal. COMPLICATIONS: None. OPERATIVE REPORT [id number] MARCO HDEZ TRANSINT:[id number] Voice Confirmation ID: [id number] DOCUMENT ID: [id number] RUTH CONWAY DO at 1842 CC: [id number] DICTATION DATE: 07/14/19 1407 BLEACH BOILER FILLER: 07/14/[address] [facility] 07/14/19 [place] [address] [place] [address]
== END 2019-07-14 17:40 | disposition home or self-care (01) ==
LOC: D.OPS 08:55 → D.PAN 11:45 → D.OPS 11:45 → D.PAN 13:30 → D.OPS 13:30 → D.PAN 14:00 → D.OPS 14:05
PROVIDERS: Anesthesiology; ATTEND Orthopaedic Surgery
DX: M25.512 Pain in left shoulder (principal); M13.812 Other specified arthritis, left shoulder; M75.42 Impingement syndrome of left shoulder; S43.432A Superior glenoid labrum lesion of left shoulder, initial encounter

== ENCOUNTER 2019-10-22 22:18 | Emergency (ER) | payer MEDICARE, BC ==
[~2019-10-22] VITALS: Ht 170.2 cm; Wt 129.3 kg
[~2019-10-22 22:18] MED LIST changes: +DILAUDID4 MG PO; +VITAMIN D250000 UNIT PO
[2019-10-22 22:29] VITALS: Ht 170.2 cm; Wt 129.3 kg
[2019-10-22 23:12] LABS: BASOPHILS 0.1 % (0-2); EOSINOPHILS 0.5 % (0-7); HEMATOCRIT 40.2 % (36.0-48.0); HEMOGLOBIN 13.8 g/dL (12-16); IMMATURE GRANULOCYTES 0.4 % (0-5); LYMPHOCYTES 22.8 % (15-50); MCH 30.2 pg (26.0-34.0); MCHC 34.3 g/dL (31.0-37.0); MEAN PLATELET VOLUME 8.4 fL (7.4-10.4); MONOCYTES 4.2 % (2-11); PLATELET COUNT 370 10x3/uL (130-400); RBC 4.57 10x6/uL (4.00-5.40); RDW 14.1 % (11.5-14.5); WBC 14.1 10x3/uL (4.8-10.8)
[2019-10-22 23:19] LABS: ANION GAP 10.4 mmol/L (8-16); CALCIUM 9.3 mg/dL (8.5-10.1); CARBON DIOXIDE 28.6 mmol/L (21.0-32.0); CREATININE - SERUM 1.3 mg/dL (0.6-1.3)
[2019-10-22 23:22] LABS: INR 0.94 (0.85-1.17); PROTIME 12.6 SECONDS (11.6-15.0)
[2019-10-22 23:23] LABS: APTT 26.9 SECONDS (22.8-39.4)
[2019-10-22 23:24] LABS: D-DIMER-QUANTITATIVE 0.62 ug/mLFEU (0.20-0.54)
[2019-10-22 23:25] LABS: ALBUMIN 3.6 g/dL (3.4-5.0); BILIRUBIN - TOTAL 0.24 mg/dL (0.2-1.3); MAGNESIUM - SERUM 2.1 mg/dL (1.8-2.4); PROTEIN - SERUM 7.6 g/dL (6.4-8.2)
[2019-10-23] MEDS ORDERED: GABAPENTIN100 MG PO (01:33)
[2019-10-23 02:06] VITALS: BP 159/69
== END 2019-10-23 02:06 | disposition home or self-care (01) ==
LOC: D.ER 22:18
PROVIDERS: Family Medicine
DX: M79.661 Pain in right lower leg (principal); R20.2 Paresthesia of skin; I50.9 Heart failure, unspecified; I25.10 Atherosclerotic heart disease of native coronary artery without angina pectoris; I25.2 Old myocardial infarction; R01.1 Cardiac murmur, unspecified; K21.9 Gastro-esophageal reflux disease without esophagitis; I13.0 Hypertensive heart and chronic kidney disease with heart failure and stage 1 through stage 4 chronic kidney disease, or unspecified chronic kidney disease; N18.3 Chronic kidney disease, stage 3 (moderate)

== ENCOUNTER 2020-01-17 20:09 | Inpatient (IN) | payer MEDICARE, BC ==
[~2020-01-17] VITALS: Ht 170.2 cm; Wt 129.1 kg
--- NOTE | 2020-01-17 10:30 | NUR ---
RECEIVED TO FLOOR, ACCOMPANIED BY STAFF. REPORTS HEADACHE. A&O X 4, AMBULATES AD ROCIO. VS STABLE, PT HR IS 48. WILL MONITOR CLOSELY. CTM.
[~2020-01-17 20:09] MED LIST changes: +GABAPENTIN100 MG PO
--- NOTE | 2020-01-17 20:10 | NUR ---
STROKE BAND NUMBER [id number]
[2020-01-17] MEDS ORDERED: OXYCONTIN10 MG PO (20:25)
[2020-01-17] MEDS ORDERED: DESOXYN5 MG PO (20:27)
[2020-01-17 20:39] LABS: BASOPHILS 0.2 % (0-2); EOSINOPHILS 1.1 % (0-7); HEMOGLOBIN 12.9 g/dL (12-16); IMMATURE GRANULOCYTES 0.4 % (0-5); LYMPHOCYTES 25.8 % (15-50); MCH 30.1 pg (26.0-34.0); MCHC 33.9 g/dL (31.0-37.0); MCV 88.6 fL (80.0-100.0); MEAN PLATELET VOLUME 8.6 fL (7.4-10.4); NEUTROPHILS 67.5 % (40-80); PLATELET COUNT 344 10x3/uL (130-400); RBC 4.29 10x6/uL (4.00-5.40); RDW 13.9 % (11.5-14.5); WBC 10.4 10x3/uL (4.8-10.8)
[2020-01-17 20:46] LABS: APTT 26.4 SECONDS (22.8-39.4); INR 0.99 (0.85-1.17); PROTIME 13.1 SECONDS (11.6-15.0)
[2020-01-17 20:47] LABS: BILIRUBIN NEGATIVE (NEGATIVE); GLUCOSE NEGATIVE (NEGATIVE); KETONE NEGATIVE (NEGATIVE); NITRITE NEGATIVE (NEGATIVE); SPECIFIC GRAVITY 1.015 (1.005-1.020); UROBILINOGEN NORMAL (NORMAL)
--- NOTE | 2020-01-17 20:47 | NUR ---
PT GIVEN BLANKETS, DENIES ANY FURTHER NEEDS AT THIS TIME. CALL LIGHT WITHIN REACH. WILL CONTINUE TO MONITOR.
[2020-01-17 20:48] LABS: CALC OSMOLALITY 274 mosm/kg (275-300); CALCIUM 8.3 mg/dL (8.5-10.1); CARBON DIOXIDE 29.7 mmol/L (21.0-32.0); CHLORIDE - SERUM 101 mmol/L (98-107); CREATININE - SERUM 1.3 mg/dL (0.6-1.3); GLUCOSE 140 mg/dL (74-106); POTASSIUM - SERUM 3.6 mmol/L (3.5-5.1); SODIUM 137 mmol/L (136-145); UREA NITROGEN 10 mg/dL (7-18); eGFR NON AFRICAN AMERICAN 45 mL/min (90-120)
[2020-01-17 21:05] LABS: ALBUMIN 3.1 g/dL (3.4-5.0); ALKALINE PHOSPHATASE 113 U/L (30-120); ALT (SGPT) 16 U/L (10-68); BILIRUBIN - TOTAL 0.28 mg/dL (0.2-1.3); CKMB 0.5 U/L (0.0-3.6); CREATINE KINASE 118 UL (21-215); PROTEIN - SERUM 6.9 g/dL (6.4-8.2)
[2020-01-17 21:07] LABS: TROPONIN-I < 0.017 ng/mL (0.000-0.060)
[2020-01-17] MEDS ORDERED: CARDURA1 MG (23:37)
[2020-01-18 00:19] VITALS: BMI 44.6
--- NOTE | 2020-01-18 01:45 | NUR ---
OFFICE NUMBER CALLED, THEN PAGED DR. GASTON TO NOTIFY OF CONSULT. AWAITING CALL BACK.
--- NOTE | 2020-01-18 02:12 | NUR ---
I have reviewed this patient and I concur with the Shift Assessment completed by the Licensed Practical Nurse today this shift.
--- NOTE | 2020-01-18 02:30 | NUR ---
DR. GASTON PAGED AGAIN TO NOTIFY OF CONSULT. AWAITING CALL BACK.
[2020-01-18 04:00] VITALS: BP 158/85
[2020-01-18 05:40] LABS: CHOL - HDL RATIO 3.7 ratio (2.3-4.1); CHOLESTEROL, TOTAL 167 mg/dL (0-200); CKMB 0.7 U/L (0.0-3.6); CREATINE KINASE 93 UL (21-215); HDL CHOLESTEROL 45 mg/dL (32-96); LDL CHOLESTEROL 108 mg/dL (0-100); LDL-HDL RATIO 2.4 ratio (1.5-3.5); MAGNESIUM - SERUM 2.1 mg/dL (1.8-2.4); THYROID STIMULATING HORMONE 2.61 uIU/mL (0.36-3.74); TRIGLYCERIDE 74 mg/dL (30-200); TROPONIN-I < 0.017 ng/mL (0.000-0.060)
[2020-01-18 08:48] VITALS: BP 145/76
--- NOTE | 2020-01-18 09:00 | NUR ---
ASSESSMENT PER FLOW SHEET. PATIENT IS WITHOUT DISTRESS. SHE IS WITHOUT WEAKNESS AT PRESENT. MONITOR FOR NEEDS
[2020-01-18 09:18] VITALS: Ht 170.2 cm; Wt 129.1 kg
[2020-01-18 12:33] LABS: ALBUMIN 3.2 g/dL (3.4-5.0); ALKALINE PHOSPHATASE 114 U/L (30-120); ALT (SGPT) 18 U/L (10-68); BILIRUBIN - TOTAL 0.46 mg/dL (0.2-1.3); CALCIUM 8.6 mg/dL (8.5-10.1); CARBON DIOXIDE 27.6 mmol/L (21.0-32.0); CHLORIDE - SERUM 104 mmol/L (98-107); CKMB 0.5 U/L (0.0-3.6); CREATINE KINASE 113 UL (21-215); POTASSIUM - SERUM 4.1 mmol/L (3.5-5.1); PROTEIN - SERUM 6.5 g/dL (6.4-8.2); SODIUM 138 mmol/L (136-145); UREA NITROGEN 9 mg/dL (7-18); eGFR NON AFRICAN AMERICAN 61 mL/min (90-120)
[2020-01-18 12:38] LABS: CALC OSMOLALITY 273 mosm/kg (275-300); GLUCOSE 87 mg/dL (74-106); TROPONIN-I < 0.017 ng/mL (0.000-0.060)
[2020-01-18 13:07] VITALS: BP 145/65
[2020-01-18 13:53] LABS: BASOPHILS 0.2 % (0-2); EOSINOPHILS 1.3 % (0-7); HEMATOCRIT 38.6 % (36.0-48.0); IMMATURE GRANULOCYTES 0.4 % (0-5); LYMPHOCYTES 28.9 % (15-50); MCH 30.3 pg (26.0-34.0); MCHC 33.7 g/dL (31.0-37.0); MEAN PLATELET VOLUME 8.9 fL (7.4-10.4); MONOCYTES 5.6 % (2-11); NEUTROPHILS 63.6 % (40-80); PLATELET COUNT 314 10x3/uL (130-400); RBC 4.29 10x6/uL (4.00-5.40); RDW 14.4 % (11.5-14.5); WBC 8.5 10x3/uL (4.8-10.8)
[2020-01-18] MEDS ORDERED: PAMELOR10 MG PO (16:19)
--- NOTE | 2020-01-18 16:25 | NUR ---
OT NOTE: PT COMPLETED UE ROM TOLERATED. PT REQUIRED CGA WITH SIT TO STAND. PT COMPLETED HAND HYGIENE WITH SETUP. PT C/O DIZZINESS WITH DYNAMIC AX. NURSING AWARE. [phone] THANK YOU,DINA CATHERINE
[2020-01-18 16:43] VITALS: BP 157/70
[2020-01-18 17:16] LABS: THYROID STIMULATING HORMONE 1.78 uIU/mL (0.36-3.74)
[2020-01-18 20:00] VITALS: BP 180/90
[2020-01-18] MEDS ORDERED: CATAPRES0.1 MG PO (20:25)
[2020-01-18 20:35] VITALS: BP 156/72
[2020-01-19] VITALS: BP 135/62
[2020-01-19 04:00] VITALS: BP 148/60
[2020-01-19 08:13] LABS: BASOPHILS 0.2 % (0-2); EOSINOPHILS 1.4 % (0-7); HEMOGLOBIN 14.9 g/dL (12-16); IMMATURE GRANULOCYTES 0.5 % (0-5); LYMPHOCYTES 24.2 % (15-50); MCHC 33.1 g/dL (31.0-37.0); MCV 90.5 fL (80.0-100.0); MONOCYTES 6.2 % (2-11); NEUTROPHILS 67.5 % (40-80); PLATELET COUNT 267 10x3/uL (130-400); RBC 4.97 10x6/uL (4.00-5.40); RDW 14.1 % (11.5-14.5); WBC 8.1 10x3/uL (4.8-10.8)
--- NOTE | 2020-01-19 09:04 | NUR ---
PT OUT OF ROOM.
--- NOTE | 2020-01-19 10:29 | NUR ---
PT ALERT AND ORIENTED X4 UPON ENETERING, SITTING UP RIGHT IN BED SIDE CHAIR. ADMINISTERED MORNING MEDICATION AT THIS TIME. NO DIFFICULTIES. ASSESSMENT PERFOMRED. DENIES ANY NEEDS AT THIS TIME. WILL CONTINUE TO MONITOR.
--- NOTE | 2020-01-19 10:30 | NUR ---
PATIENT IS WITHOUT DISTRESS.PATIENT HAS AMBULATED IN HALLS.
[2020-01-19] MEDS ORDERED: LIPITOR20 MG PO (11:27)
[2020-01-19] MEDS ORDERED: LOPRESSOR25 MG PO (11:28)
[2020-01-19] MEDS ORDERED: PLAVIX75 MG PO (11:28)
--- NOTE | 2020-01-19 12:08 | MORECARE ---
CASE MANAGEMENT DISCHARGE SUMMARY PATIENT: DEJON MCKEON UNIT: [id number] ADM DATE: 01/17/20 AGE: 54 : 61 SEX: F ROOM/BED: D.2219 AUTHOR: ELSIE HALE PHYSICIAN: REFERRING PHYSICIAN: CANDIE PATTEN MD DATE OF SERVICE: 01/19/20 Discharge Plan Patient Name: DEJON MCKEON [facility] [facility] 1965 Planned Disposition: Home or Self Care Anticipated Discharge Date: Discharge Date: Expected LOS: Initial Reviewer: [email or web address] Initial Review Date: 01/17/2020 Generated: 01/19/20 1:08 pm Patient Name: DEJON MCKEON Page [id number] at 1208 All edits/amendments must be made on the electronic document DICTATION DATE: 01/19/20 1208 HIDE TANNER: RANDA 01/19/20 1208 RPT#: [id number] DC DATE: STATUS: ADM IN [facility] [address] [place] [address] END OF REPORT
--- NOTE | 2020-01-19 12:12 | EC ---
PATIENT:DEJON MCKEON DATE OF SERVICE: 01/17/20 SEX: F MEDICAL RECORD: [id number] DATE OF : 61 LOCATION:D.[facility] AGE OF PATIENT: 54 ADMISSION DATE: 01/17/20 REFERRING PHYSICIAN: INTERPRETING PHYSICIAN: ELHAM TODD MD ECHOCARDIOGRAM REPORT ECHO CHARGES 4 ECHO COMPLETE Date: 01/18/20 CLINICAL DIAGNOSIS: SYNCOPE/CHEST PAIN HX TIA'S AND HTN ECHOCARDIOGRAPHIC MEASUREMENTS (adult normal given) AC root (d.<3.7cm) 3.2 cm LV Septum d (<1.2 cm> 1.4 cm Valve Excursion 1.6 cm LV Septum (systole) 1.7 cm Left Atria (s.<4.0cm> 4.7 cm LVPW d(<1.2cm) 1.8 cm RV (d.<2.3cm) 4.1 cm LVPW (sytole) 2.0 cm LV diastole(<5.6CM) 5.1 cm MV E-F(>70mm/sec) cm LV systole 3.2 cm LVOT Diameter 1.7 cm MV exc.(>10mm) 2.0 cm Est.ejection fraction (50-75%) % DOPPLER: LVIT cm/sec A 80.0 cm/sec E 63.0 cm/sec LA cm/sec RVSP 12 mmHg LVOT 125 cm/sec AOP1/2T m/s Asc. Ao 148 cm/sec RVOT 58 cm/sec RA cm/sec PA 118 cm/sec AV Gradient Peak 8.79 mmHg AV Mean 4.84 mmHg AV Area 1.9 cm MV Gradient Peak 3.11 mmHg MV Mean 0.84 mmHg MV Area cm COMMENTS: Gear Technician: 2 KYREE WHARTON Model Maker Firearms: 3 Dr. Mckinney TAPE# PACS Pericardial Effusion N DATE OF SERVICE: Adequate 2D, color flow imaging, spectral Doppler, and M-Mode. LVH is present. LV internal dimensions are normal. Wall motion is normal. EF is greater than or equal to 55%. Aortic valve is tricuspid. There is no evidence of stenosis on Doppler interrogation. Left atrium is dilated at 4.7 cm. Mitral valve shows no prolapse. Trace MR. Right-sided chambers are grossly normal. Mild TR. ECHOCARDIOGRAM REPORT [id number] DEJON MCKEON TRANSINT:[id number] Voice Confirmation ID: [id number] DOCUMENT ID: [id number] ELHAM TODD MD at 1212 CC: [id number] DICTATION DATE: 01/18/20 1307 WHALE TRAINER: 01/18/20 1413 ADM IN [facility] [address] [place] [address]
--- NOTE | 2020-01-19 12:17 | MORECARE ---
CASE MANAGEMENT DISCHARGE SUMMARY PATIENT: DEJON MCKEON UNIT: [id number] ADM DATE: 01/17/20 AGE: 54 : 61 SEX: F ROOM/BED: D.2219 AUTHOR: ELSIE HALE PHYSICIAN: REFERRING PHYSICIAN: CANDIE PATTEN MD DATE OF SERVICE: 01/19/20 Discharge Plan Patient Name: DEJON MCKEON [facility] [facility] 1965 Planned Disposition: Home or Self Care Anticipated Discharge Date: Discharge Date: Expected LOS: Initial Reviewer: [email or web address] Initial Review Date: 01/17/2020 Generated: 01/19/20 1:17 pm DCPIA - Discharge Planning Initial Assessment Updated by [email or web address]: Brandy Flores on 01/19/20 12:10 pm * Is the patient Alert and Oriented? Yes * How many steps to enter\exit or inside your home? RAMP * PCP [facility] * [facility] * Preadmission Environment Home with Family * ADLs Independent * Equipment None * List name and contact numbers for known caregivers / representatives who currently or will assist patient after discharge: MARYCARMEN MCKEON [phone] * Verbal permission to speak to the caregivers and representatives has been obtained from the patient. N/A * Community resources currently utilized None * Additional services required to return to the preadmission environment? Yes * Can the patient safely return to the preadmission environment? Yes * Has this patient been hospitalized within the prior 30 days at any hospital? No Last DP export: 01/19/20 11:08 a Patient Name: DEJON MCKEON Page [id number] at 1217 All edits/amendments must be made on the electronic document DICTATION DATE: 01/19/20 1217 GASOLINE PUMP MECHANIC: RANDA 01/19/20 1217 RPT#: [id number] DC DATE: STATUS: ADM IN [facility] [address] [place] [address] END OF REPORT
--- NOTE | 2020-01-19 12:33 | MORECARE ---
CASE MANAGEMENT DISCHARGE SUMMARY PATIENT: DEJON MCKEON UNIT: [id number] ADM DATE: 01/17/20 AGE: 54 : 61 SEX: F ROOM/BED: D.2219 AUTHOR: GEOFFREY,DOC PHYSICIAN: REFERRING PHYSICIAN: CANDIE PATTEN MD DATE OF SERVICE: 01/19/20 Discharge Plan Patient Name: DEJON MCKEON Facility: [facility]:[place] : 1965 Planned Disposition: Home or Self Care Anticipated Discharge Date: Discharge Date: Expected LOS: Initial Reviewer: [email or web address] Initial Review Date: 01/17/2020 Generated: 01/19/20 1:32 pm Comments DCP- Discharge Planning Updated by [email or web address]: Brandy Flores on 01/19/20 11:[address] Patient Name: DEJON MCKEON Admission Status: ER Accout number: [id number] Admission Date: 01-17-2020 : 1965 Admission Diagnosis: Attending: RACHEL PATETN Current LOS: 2 Anticipated DC Date: Planned Disposition: Home or Self Care Primary Insurance: MEDICARE A & B Discharge Planning Comments: CM met with patient to complete initial dc planning assessment. CM educated patient on the CM role and verbal consent given by patient to complete assessment. Patient lives at home where she is independent with her care. At discharge patient plans to return home and feels this is a safe discharge. CM discussed availability of home health, rehab services, and medical equipment. She would like [facility] and has signed to [facility] for them, but does not want them to start till after the COVID is slowed down. I had her signed the [facility] for [facility] and the declination for start time. I did send the referral to [facility] and let Isamar with [facility] know about the patient. Patient denied known discharge needs at this time. CM will continue to follow and will assist as needed with dc plans/needs. Documentation Coordinator: Brandy Flores DCPIA - Discharge Planning Initial Assessment Updated by [email or web address]: Brandy Flores on 01/19/20 12:10 pm * Is the patient Alert and Oriented? Yes * How many steps to enter\exit or inside your home? RAMP * PCP [facility] * [facility] * Preadmission Environment Home with Family * ADLs Independent * Equipment None * List name and contact numbers for known caregivers / representatives who currently or will assist patient after discharge: MARYCARMEN MCKEON [phone] * Verbal permission to speak to the caregivers and representatives has been obtained from the patient. N/A * Community resources currently utilized None * Additional services required to return to the preadmission environment? Yes * Can the patient safely return to the preadmission environment? Yes * Has this patient been hospitalized within the prior 30 days at any hospital? No Coverage Notice Reviewer: [email or web address] Dora Flores Notice Issued Date-Time: 01/19/2020 12:25 Notice Type: Patient Choice Letter Notice Delivered To: Patient Relationship to Patient: Vessel Captain Name: Delivery Method: HAND - Hand Delivered Rosita Days: Prior Verbal Notification: Recipient Understood Notice: Yes Recipient Signature: Yes Med Rec Note Co-signed by Attending: Coverage Notice Comment: mame Gonzalez DP export: 01/19/20 11:17 a Patient Name: DEJON MCKEON Page 11060 at 1233 All edits/amendments must be made on the electronic document DICTATION DATE: 01/19/20 1232 LABORER CHICKEN FARM: RANDA 01/19/20 1232 RPT#: [id number] DC DATE: STATUS: ADM IN [facility] [address] [place] [address] END OF REPORT
--- NOTE | 2020-01-19 13:31 | NUR ---
PT HAS SIGNED ALL NECESSARY PAPERWORK. TELEMETRY HAS BEEN REMOVED. IV DC FROM RIGHT AC, CATHETER TIP INTACT, TOLERATED WELL. 2X2'S AND TAPE COVERING SITE. DENIES ANY NEEDS. PT CALLING FAMILY. WILL BE ESCORTED DOWN ONCE RIDE IS HERE.
--- NOTE | 2020-01-21 12:15 | MORECARE ---
CASE MANAGEMENT DISCHARGE SUMMARY PATIENT: DEJON MCKEON UNIT: [id number] ADM DATE: 01/17/20 AGE: 54 : 61 SEX: F ROOM/BED: D.2219 AUTHOR: GEOFFREY,DOC PHYSICIAN: REFERRING PHYSICIAN: CANDIE PATTEN MD DATE OF SERVICE: 01/21/20 Discharge Plan Patient Name: DEJON MCKEON Facility: [facility]:[place] : 1965 Planned Disposition: Home or Self Care Anticipated Discharge Date: Discharge Date: 01/19/2020 Expected LOS: 0 Initial Reviewer: [email or web address] Initial Review Date: 01/17/2020 Generated: 01/21/20 1:15 pm Comments DCP- Discharge Planning Updated by [email or web address]: Brandy Flores on 01/19/20 11:[address] Patient Name: DEJON MCKEON Admission Status: ER Accout number: [id number] Admission Date: 01-17-2020 : 1965 Admission Diagnosis: Attending: RACHEL PATTEN Current LOS: 2 Anticipated DC Date: Planned Disposition: Home or Self Care Primary Insurance: MEDICARE A & B Discharge Planning Comments: CM met with patient to complete initial dc planning assessment. CM educated patient on the CM role and verbal consent given by patient to complete assessment. Patient lives at home where she is independent with her care. At discharge patient plans to return home and feels this is a safe discharge. CM discussed availability of home health, rehab services, and medical equipment. She would like [facility] and has signed to [facility] for them, but does not want them to start till after the COVID is slowed down. I had her signed the [facility] for [facility] and the declination for start time. I did send the referral to [facility] and let Isamar with [facility] know about the patient. Patient denied known discharge needs at this time. CM will continue to follow and will assist as needed with dc plans/needs. Appointment Specialist: Brandy Flores DCPIA - Discharge Planning Initial Assessment Updated by [email or web address]: Brandy Flores on 01/19/20 12:10 pm * Is the patient Alert and Oriented? Yes * How many steps to enter\exit or inside your home? RAMP * PCP [facility] * [facility] * Preadmission Environment Home with Family * ADLs Independent * Equipment None * List name and contact numbers for known caregivers / representatives who currently or will assist patient after discharge: MARYCARMEN MCKEON [phone] * Verbal permission to speak to the caregivers and representatives has been obtained from the patient. N/A * Community resources currently utilized None * Additional services required to return to the preadmission environment? Yes * Can the patient safely return to the preadmission environment? Yes * Has this patient been hospitalized within the prior 30 days at any hospital? No Coverage Notice Reviewer: [id number] Dora Flores Notice Issued Date-Time: 01/19/2020 12:25 Notice Type: Patient Choice Letter Notice Delivered To: Patient Relationship to Patient: General Magistrate Name: Delivery Method: HAND - Hand Delivered Rosita Days: Prior Verbal Notification: Recipient Understood Notice: Yes Recipient Signature: Yes Med Rec Note Co-signed by Attending: Coverage Notice Comment: mame Gonzalez DP export: 01/19/20 11:33 a Patient Name: DEJON MCKEON Page 19231 at 1215 All edits/amendments must be made on the electronic document DICTATION DATE: 01/21/20 1215 LAP REGULATOR: RANDA 01/21/20 1215 RPT#: [id number] DC DATE:01/19/20 STATUS: DIS IN [facility] [address] [place] [address] END OF REPORT
== END 2020-01-19 14:01 | disposition home or self-care (01) | DRG 69 ==
LOC: D.ER 20:09 → D.MS 21:01
PROVIDERS: Family Medicine; ADMIT Emergency Medicine; ATTEND Emergency Medicine
DX: G45.9 Transient cerebral ischemic attack, unspecified (principal); M33.90 Dermatopolymyositis, unspecified, organ involvement unspecified; Z68.41 Body mass index [BMI] 40.0-44.9, adult; I10 Essential (primary) hypertension; I12.9 Hypertensive chronic kidney disease with stage 1 through stage 4 chronic kidney disease, or unspecified chronic kidney disease; N18.9 Chronic kidney disease, unspecified; K21.9 Gastro-esophageal reflux disease without esophagitis; E66.01 Morbid (severe) obesity due to excess calories; I51.9 Heart disease, unspecified; Z86.73 Personal history of transient ischemic attack (TIA), and cerebral infarction without residual deficits

== ENCOUNTER → 2020-05-20 10:59 | Outpatient (CLI) | payer MEDICARE, BC ==
[2020-01-18 09:18] VITALS: BMI 44.6
--- NOTE | ~2020-05-20 | HEMODYNAMI ---
PATIENT:DEJON MCKEON MEDICAL RECORD: [id number] : 61 [id number] ADMISSION DATE: 05/20/20 Generatedon:05/20/202011:58 Patient name: DEJON MCKEON Patient #: [id number] SSN: : 1965 Date of study: 05/20/2020 Page: Of Hemodynamic Procedure Report Patient Data Patient Demographics Procedure consent was obtained First Name: DEJON Gender: Female Last Name: MIKE : 1965 [facility] Initial: M Age: 54 year(s) Patient #: [id number] Race: Black Additional ID: [id number] Contact details [address]: [address] [place] [address] State: [place] City: [place] Zip code: [address] Past Medical History Allergies Allergen Reaction Date Comments Reported Other allergy 02/05/2018 iodine Iodine 05/20/2020 Admission Admission Data Admission Date: 05/20/2020 Admission Time: 10:59 Procedure Procedure Types Cath Procedure Peripheral Cath Diagnostic Procedure Furniture Sprayer Peripheral Procedures Miscellaneous Aspiration/Injection (Joint) Procedure Description Procedure Date Procedure Date: 05/20/2020 Procedure Start Time: 11:48 Procedure Staff Name Function Aries Ku MD Performing Physician Noman Crawford RT Forensic Materials Engineer Anya Finley RT Forensic Materials Engineer Procedure Data Cath Procedure Fluoroscopy Diagnostic fluoroscopy Total fluoroscopy Time: 0 time: 0 min min Diagnostic fluoroscopy Total fluoroscopy dose: 41 dose: 41 mGy mGy Contrast Material Contrast Material Type Amount (ml) Isovue 300 8 Hemodynamics Rest Pre Cath Intra NCS Post Cath Procedure Log Time Note 11:36:14 Time tracking: Regular hours (M-F 7:00 - 5:00) 11:36:32 Patient received from Other to IR Alert and oriented. Tansferred to table in Supine position. 11:37:00 Signed procedure consent form obtained from patient. 11:37:12 Pre-procedure instructions explained to patient. 11:37:13 Pre-op teaching completed and patient verbalized understanding. 11:37:20 Patient allergic to Iodine 11:37:25 Is the patient allergic to Iodine/contrast media? Yes. 11:37:32 Was the patient premedicated? No 11:37:38 Is patient on blood thinner?Yes, not taken for 3 days 11:38:25 - 11:38:50 SAFE-T PLUS MYELOGRAM TRAY opened to sterile field. 11:38:58 - 11:48:18 Physician arrived 11:48:20 --------ALL STOP TIME OUT------ 11:48:20 Final Timeout: patient, procedure, and site verified with staff and physician. All members of the team are in agreement. 11:48:37 Procedure started. 11:48:37 Full Disclosure recording started 11:56:58 Procedure ended.(Physican Out) 11:57:39 SITE STABLE BANDAIDE APPLIED LT. HIP PT SENT HOME 11:57:44 Contrast amount:Isovue 300 8ml. 11:58:12 Fluoroscopy time 00.00 minutes. 11:58:18 Fluoroscopy dose: 41 mGy 11:58:18 Flurop Dose total: 41 Device Usage Item Name Manufacture Quantity Catalog Hospital Part Current Minimal Lot# / Number Charge Number Stock Stock Serial# Code SAFE-T [employer] 1 [id number] PLUS MYELOGRAM TRAY Signature Audit Corbett Stage Time Signature Unsigned Intra-Procedure 05/20/2020 Noman 11:58:37 AM Ty RT (R) (CV) [facility] [address] [place] [address]
[~2020-05-20 10:59] MED LIST changes: +CARDURA1 MG; +DESOXYN5 MG PO; +LIPITOR20 MG PO; +LOPRESSOR25 MG PO; +OXYCONTIN10 MG PO; +PAMELOR10 MG PO; +PLAVIX75 MG PO
== END | disposition home or self-care (01) ==
LOC: D.RAD 05-17 09:30
PROVIDERS: ATTEND Orthopaedic Surgery
DX: M16.12 Unilateral primary osteoarthritis, left hip (principal)

== ENCOUNTER → 2020-11-06 10:11 | Outpatient (CLI) | payer MEDICARE, BC ==
[2020-10-01 11:19] VITALS: BMI 44.4
[~2020-11-06 10:11] MED LIST changes: +FOLATE0.4 MG PO; +TREXALL5 MG PO
== END | disposition home or self-care (01) ==
LOC: D.US 10:11
PROVIDERS: ATTEND Nurse Practitioner Family
DX: R60.0 Localized edema (principal)